=== PATIENT | female | born 1990 ===

== ENCOUNTER 2018-12-03 11:32 | Observation (INO) | payer MEDICAID ==
[~2018-12-03] VITALS: Ht 157.5 cm; Wt 69.4 kg
[2018-12-03] MEDS ORDERED: PREN-96 PO (12:15)
[2018-12-03] MEDS ORDERED: [UNRECOGNIZED DRUG - CODE] PO (12:15)
[2018-12-03] MEDS ORDERED: CYAN1TAB14 PO (12:15)
[2018-12-03] MEDS ORDERED: LACTATED RINGER'S 1,000 ML IV ONE (13:00)
[2018-12-03] MEDS ORDERED: TERBUTALINE SULFATE 1 MG/ML 1ML VIAL SC SCH (13:30)
[2018-12-03 13:34] LABS: Alcohol, Urine < 3.0 mg/dL (0-5); Amphetamine Screen, Urine NEGATIVE (NEGATIVE); Barbiturate Scree,Urine NEGATIVE (NEGATIVE); Benzodiazephine Screen, Urine NEGATIVE (NEGATIVE); Cannabinoid Screen, Urine NEGATIVE (NEGATIVE); Cocaine Screen, Urine NEGATIVE (NEGATIVE); Phencyclidine Screen, Urine NEGATIVE (NEGATIVE)
[2018-12-03 13:42] LABS: Opiate Scree,Urine NEGATIVE (NEGATIVE)
== END 2018-12-03 14:45 | disposition home or self-care (01) | DRG 563 ==
LOC: LDRP 11:32
PROVIDERS: ADMIT Specialist; ATTEND Specialist
DX: O60.03 Preterm labor without delivery, third trimester (principal); Z3A.31 31 weeks gestation of pregnancy
CPT/HCPCS: 59025; 80307; 81002; 96372; G0378; J3105; 96361; 96366